=== PATIENT | female | born 1995 | race Caucasian/White ===

== ENCOUNTER 2021-04-12 17:45 | Outpatient (CLI) | payer BC | END 2021-04-12 17:55 | disposition home or self-care (01) | LOC: FBPOP 17:45 | PROVIDERS: ATTEND Obstetrics & Gynecology | DX: O36.8121 Decreased fetal movements, second trimester, fetus 1 (principal); Z3A.26 26 weeks gestation of pregnancy | CPT/HCPCS: 99213 ==

== ENCOUNTER → 2023-09-26 | Outpatient (CLI) | payer BC ==
--- NOTE | 2023-09-27 07:24 | CA ---
Transthoracic Echo Report Name: Suyapa Gvoea Age: 27 Gender: F : 1995 Exam Date: 09/26/2023 15:15 Exam Location: [facility] Ht (in): 63 Wt (lb): 130 Ordering Physician: Italo Aguayo MD Attending/Referring Phys: Dede JAMES Cash Manager Shamika Bee [facility] Procedure CPT: Indications: R94.31 abn ekg Cardiac Hx: Technical Quality: Fair Contrast 1: Total Dose (mL): Contrast 2: Total Dose (mL): MEASUREMENTS (Male / Female) Normal Values 2D ECHO LV Diastolic Diameter PLAX 4.8 cm 4.2 - 5.9 / 3.9 - 5.3 cm LV Systolic Diameter PLAX 3.3 cm IVS Diastolic Thickness 0.7 cm 0.6 - 1.0 / 0.6 - 0.9 cm LVPW Diastolic Thickness 0.7 cm 0.6 - 1.0 / 0.6 - 0.9 cm LV Relative Wall Thickness 0.3 M-MODE Aortic Root Diameter MM 2.5 cm LA Systolic Diameter MM 2.7 cm LA Ao Ratio MM 1.1 AV Cusp Separation MM 2.2 cm DOPPLER AV Peak Velocity 89.1 cm/s AV Peak Gradient 3.2 mmHg AV Mean Velocity 66.1 cm/s AV Mean Gradient 1.9 mmHg AV Velocity Time Integral 19.8 cm LVOT Peak Velocity 80.2 cm/s LVOT Peak Gradient 2.6 mmHg LVOT Velocity Time Integral 16.9 cm Mitral E Point Velocity 56.2 cm/s Mitral A Point Velocity 44.3 cm/s Mitral E to A Ratio 1.3 MV Deceleration Time 212.6 ms LV E' Lateral Velocity 16.8 cm/s Mitral E to LV E' Lateral Ratio 3.3 LV E' Septal Velocity 12.6 cm/s Mitral E to LV E' Septal Ratio 4.4 TR Peak Velocity 170.7 cm/s TR Peak Gradient 11.7 mmHg Right Atrial Pressure 3.0 mmHg Pulmonary Artery Systolic Pressu 14.7 mmHg Right Ventricular Systolic Press 14.7 mmHg FINDINGS Left Ventricle Left ventricular wall thickness normal. Left ventricular cavity size at the upper limits of normal. Low normal left ventricular systolic function with no obvious regional wall motion abnormalities. Left ventricular ejection fraction is estimated at 50-55%. Right Ventricle Normal right ventricular size. Right Atrium Normal right atrial size. Left Atrium Normal left atrial size. Mitral Valve Structurally normal mitral valve. No mitral regurgitation. Aortic Valve Trileaflet aortic valve. No aortic valve stenosis or regurgitation. Tricuspid Valve Structurally normal tricuspid valve. Trace tricuspid regurgitation. Pulmonic Valve Structurally normal pulmonic valve. Trace to mild pulmonic regurgitation. Pericardium No pericardial effusion. Aorta Normal size aortic root and proximal ascending aorta. CONCLUSIONS Normal LV systolic function Previewed by: Dr. Catalino Juarez MD (Electronically Signed) Final Date: 27 September 2023 07:23
== END | disposition home or self-care (01) ==
LOC: RADECHMAIN 15:06
PROVIDERS: ATTEND Family Medicine
DX: R94.31 Abnormal electrocardiogram [ECG] [EKG] (principal)
CPT/HCPCS: 93306